=== PATIENT | female | born 1955 | race American Indian/Alaskan Native ===

== ENCOUNTER 2021-08-30 09:51 | Outpatient (CLI) | payer MEDICARE ==
[2021-08-30] MEDS ORDERED: LIDOCAINE (4%) 40 MG/ML TOPICAL SOLN 50 ML BOTTLE TP ONE (10:23)
== END 2021-08-30 09:52 | disposition home or self-care (01) ==
LOC: WOUND 09:51
PROVIDERS: ATTEND Surgery
DX: T25.222A Burn of second degree of left foot, initial encounter (principal); T31.0 Burns involving less than 10% of body surface; I70.245 Atherosclerosis of native arteries of left leg with ulceration of other part of foot; L97.521 Non-pressure chronic ulcer of other part of left foot limited to breakdown of skin; I12.0 Hypertensive chronic kidney disease with stage 5 chronic kidney disease or end stage renal disease; N18.6 End stage renal disease; F17.290 Nicotine dependence, other tobacco product, uncomplicated; Z99.2 Dependence on renal dialysis; Z79.899 Other long term (current) drug therapy; X08.8XXA Exposure to other specified smoke, fire and flames, initial encounter; Y93.89 Activity, other specified; Y92.89 Other specified places as the place of occurrence of the external cause; Y99.8 Other external cause status
CPT/HCPCS: 97597; 97598; G0463; 99205

== ENCOUNTER 2021-09-04 09:59 | Outpatient (CLI) | payer MEDICARE ==
--- NOTE | 2021-09-04 15:00 | Vascular Lab Report ---
DUPLEX DOPPLER LOWER EXTREMITY ARTERIAL, BILATERAL INDICATION / CLINICAL INFORMATION: I70.292 OTHER ATHEROSCLEROSIS OF [place] ARTERIES OF LEFT LEG. TECHNIQUE: Arterial duplex examination of both lower extremities performed using B-mode, color flow a nd spectral Doppler assessment. FINDINGS: RIGHT: - Atherosclerotic Plaque: Significant atherosclerotic plaque diffusely. - Elevated Velocity (>200 cm/s): 202 cm/s within the common femoral artery. - Abnormal Waveform: Monophasic waveforms are noted throughout the right lower extremity. LEFT: - Atherosclerotic Plaque: Moderate to significant atherosclerotic plaque diffusely. - Elevated Velocity (>200 cm/s): None. - Abnormal Waveform: There is transition from biphasic to monophasic waveforms beginning at the level of the distal SFA. ADDITIONAL FINDINGS: None. Right JENNIFER: Not calculated. Left JENNIFER: Not calculated. IMPRESSION: 1. There is evidence of hemodynamically significant peripheral arterial disease bilaterally, right gr eater than left. Conventional or CT angiogram should be considered. Ankle-Brachial Index (JENNIFER): - Calcified arteries > 1.4 - Normal = 0.9-1.4 - Mild PAD = 0.7-0.89 - Moderate PAD = 0.51-0.69 - Severe PAD < 0.5 Doppler Waveform: - Triphasic is normal. - Biphasic is abnormal if clear transition from triphasic signal along vascular tree. - Monophasic is abnormal. Scribed by: Maki De Paz RDMS, RVT, RMSKS Scribed: 09/04/2021 1:10 PM I have reviewed the images, agree with this report, and edited this report as needed. Signer Name: Hill Calero MD Signed: 09/04/2021 2:56 PM Workstation Name: [id number]
== END 2021-09-04 10:00 | disposition home or self-care (01) ==
LOC: VAS 09:59
PROVIDERS: ATTEND Surgery
DX: I70.203 Unspecified atherosclerosis of native arteries of extremities, bilateral legs (principal)
CPT/HCPCS: 93925

== ENCOUNTER 2021-09-06 12:56 | Outpatient (CLI) | payer MEDICARE ==
[2021-09-06] MEDS ORDERED: LIDOCAINE (4%) 40 MG/ML TOPICAL SOLN 50 ML BOTTLE TP SCH (13:30)
== END 2021-09-06 12:57 | disposition home or self-care (01) ==
LOC: WOUND 12:56
PROVIDERS: ATTEND Surgery
DX: T25.222D Burn of second degree of left foot, subsequent encounter (principal); T31.0 Burns involving less than 10% of body surface; I70.245 Atherosclerosis of native arteries of left leg with ulceration of other part of foot; L97.521 Non-pressure chronic ulcer of other part of left foot limited to breakdown of skin; I12.0 Hypertensive chronic kidney disease with stage 5 chronic kidney disease or end stage renal disease; N18.6 End stage renal disease; F17.290 Nicotine dependence, other tobacco product, uncomplicated; Z99.2 Dependence on renal dialysis; Z98.890 Other specified postprocedural states; X08.8XXD Exposure to other specified smoke, fire and flames, subsequent encounter
CPT/HCPCS: 16020

== ENCOUNTER 2021-09-20 10:38 | Outpatient (CLI) | payer MEDICARE ==
[2021-09-20] MEDS ORDERED: LIDOCAINE (4%) 40 MG/ML TOPICAL SOLN 50 ML BOTTLE TP ONE (10:42)
== END 2021-09-20 10:39 | disposition home or self-care (01) ==
LOC: WOUND 10:38
PROVIDERS: ATTEND Surgery
DX: T25.222D Burn of second degree of left foot, subsequent encounter (principal); T31.0 Burns involving less than 10% of body surface; I70.245 Atherosclerosis of native arteries of left leg with ulceration of other part of foot; L97.521 Non-pressure chronic ulcer of other part of left foot limited to breakdown of skin; I12.0 Hypertensive chronic kidney disease with stage 5 chronic kidney disease or end stage renal disease; N18.6 End stage renal disease; F17.290 Nicotine dependence, other tobacco product, uncomplicated; Z99.2 Dependence on renal dialysis; Z98.890 Other specified postprocedural states; X08.8XXD Exposure to other specified smoke, fire and flames, subsequent encounter
CPT/HCPCS: 16020

== ENCOUNTER 2021-09-27 10:32 | Outpatient (CLI) | payer MEDICARE ==
[2021-09-27] MEDS ORDERED: LIDOCAINE (4%) 40 MG/ML TOPICAL SOLN 50 ML BOTTLE TP ONE (10:43)
== END 2021-09-27 10:33 | disposition home or self-care (01) ==
LOC: WOUND 10:32
PROVIDERS: ATTEND Surgery
DX: T25.222D Burn of second degree of left foot, subsequent encounter (principal); T31.0 Burns involving less than 10% of body surface; I70.245 Atherosclerosis of native arteries of left leg with ulceration of other part of foot; L97.521 Non-pressure chronic ulcer of other part of left foot limited to breakdown of skin; I12.0 Hypertensive chronic kidney disease with stage 5 chronic kidney disease or end stage renal disease; N18.6 End stage renal disease; F17.290 Nicotine dependence, other tobacco product, uncomplicated; Z99.2 Dependence on renal dialysis; Z98.890 Other specified postprocedural states; X08.8XXD Exposure to other specified smoke, fire and flames, subsequent encounter
CPT/HCPCS: 16020

== ENCOUNTER 2021-10-04 11:41 | Outpatient (CLI) | payer MEDICARE ==
--- NOTE | 2021-10-04 14:19 | XRay Report ---
CHEST 2 VIEWS INDICATION: R06.02 SOB. COMPARISON: None FINDINGS: SUPPORT DEVICES: None. HEART: Within normal limits. LUNGS/PLEURA: Patchy right greater than left basilar airspace disease with moderate-sized right basil ar effusion. No pneumothorax. ADDITIONAL FINDINGS: None. IMPRESSION: 1. Lung findings as above. Signer Name: Elton Villegas MD Signed: 10/04/2021 2:15 PM Workstation Name: [facility] Referral [facility]
--- NOTE | 2021-10-05 10:32 | Electrocardiograph Report ---
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
== END 2021-10-04 11:42 | disposition home or self-care (01) ==
LOC: CARD 11:41
PROVIDERS: ATTEND Surgery
DX: J98.4 Other disorders of lung (principal); R06.02 Shortness of breath; I70.292 Other atherosclerosis of native arteries of extremities, left leg; L97.521 Non-pressure chronic ulcer of other part of left foot limited to breakdown of skin
CPT/HCPCS: 71046; 93005